=== PATIENT | male | born 1950 | race Two or more races ===

== ENCOUNTER 2019-09-04 18:03 | Emergency (ER) | payer MEDICARE, OTHER ==
[~2019-09-04] VITALS: Ht 172.7 cm; Wt 96.0 kg
--- NOTE | 2019-09-04 18:29 | NUR ---
Adryan lee in ED - 09/04/19 at 1835 by MAURISIO PT XIOMY NANCE.
--- NOTE | 2019-09-04 18:33 | NUR ---
PT NOT DC'S. PREVIOUS PATIENT IN 3 DISCHARGED.
--- NOTE | 2019-09-04 18:33 | NUR ---
THIS IS A 69 YO MALE COMING IN FOR NAUSEA, CRAMPING, DIZZINESS, BODY ACHES, AND A HEADACHE STARTING TWO HOURS AGO WITH A SUDDEN ONSET. PATIENT IS A&O X4, HAS NO MEDICAL HISTORY BESIDES DIABETES. PATIENT DENIES VOMITING OR DIARRHEA. PATIENT AMBULATED WITH STEADY GAIT TO RESTROOM, URINE SAMPLE OBTAINED. PATIENT PLACED ON CONTINUOUS SPO2 AT 95%, CYCLE BP Q1HR. DENIES FURTHER NEEDS AT THIS TIME.
[2019-09-04] MEDS ORDERED: ONDANSETRON 2MG/ML, 2ML ONE (18:47)
[2019-09-04 18:57] LABS: BASOPHILS # (AUTO) 0.02 x10^3/uL (0-0.1); BASOPHILS % (AUTO) 0 % (0-1); EOSINOPHILS # (AUTO) 0.11 x10^3/uL (0-0.4); EOSINOPHILS % (AUTO) 1 % (1-7); LYMPHOCYTES # (AUTO) 1.04 x10^3/uL (1-3.4); LYMPHOCYTES % (AUTO) 13 % (22-44); MD NO; MEAN CORPUSCULAR HEMOGLOBIN 30.8 pg (27.5-34.5); MEAN CORPUSCULAR HGB CONC 33.4 g/dL (33.2-36.2); MEAN CORPUSCULAR VOLUME 92.2 fL (81-97); MEAN PLATELET VOLUME 9.1 fL (7.4-10.4); MONOCYTES # (AUTO) 0.27 x10^3/uL (0.2-0.8); MONOCYTES % (AUTO) 3 % (2-9); NEUTROPHILS # (AUTO) 6.85 x10^3/uL (1.8-6.8); NEUTROPHILS % (AUTO) 83 % (42-75); PLATELET COUNT 171 x10^3/uL (130-400); RED BLOOD COUNT 4.65 x10^6/uL (4.38-5.82)
[2019-09-04] MEDS ORDERED: SODIUM CHLORIDE FLUSH 10ML SYR IVF ONE (19:00)
[2019-09-04] MEDS ORDERED: ONDANSETRON 2MG/ML, 2ML IVPush ONE (19:00)
[2019-09-04 19:01] LABS: MICROSCOPIC AUTO
[2019-09-04 19:09] LABS: ALANINE AMINOTRANSFERASE 21 U/L (12-78); ALBUMIN 3.6 g/dL (3.4-5.0); ANION GAP 8 mmol/L (5-15); CALCIUM 8.3 mg/dL (8.5-10.1); CHLORIDE 105 mmol/L (98-107); CREATININE 1.16 mg/dL (0.7-1.3)
[2019-09-04 19:10] LABS: CULTURE INDICATED? NO
[2019-09-04 19:14] LABS: ALKALINE PHOSPHATASE 100 U/L (45-117); TOTAL PROTEIN 7.3 g/dL (6.4-8.2); TROPONIN I 0.033 ng/mL (0.000-0.045)
--- NOTE | 2019-09-04 19:39 | NUR ---
PT RESTING QUIETLY W/ LIGHTS DIMMED. STATES CARRILLO "IS STILL THERE, IT JUST DOESN'T SEEM TO WANT TO GO AWAY". CARDIAC & VS MONITORING CONTINUING. SIDE RAILS UP X2, CALL LIGHT W/IN REACH. SPOUSE IN ROOM.
[2019-09-04] MEDS ORDERED: PRAV40TA2 PO (19:46)
[2019-09-04] MEDS ORDERED: MELO7.5T31 PO (19:46)
[2019-09-04] MEDS ORDERED: LISI-167 PO (19:46)
[2019-09-04] MEDS ORDERED: GABA300C10 PO (19:46)
[2019-09-04] MEDS ORDERED: LEVO137T3 PO (19:46)
[2019-09-04] MEDS ORDERED: INSULIN (19:47)
[2019-09-04] MEDS ORDERED: KETOROLAC 30 MG/1 ML ONE (19:52)
[2019-09-04] MEDS ORDERED: DULA1.5P SL (19:56)
[2019-09-04] MEDS ORDERED: KETOROLAC 30 MG/1 ML IVPush ONE (20:00)
--- NOTE | 2019-09-04 20:00 | NUR ---
TORADOL GIVEN PER EMAR. IV SITE PATENT.
[2019-09-04 21:37] VITALS: BP 159/78
== END 2019-09-04 21:48 | disposition home or self-care (01) ==
LOC: ED 21:42
DX: R10.84 Generalized abdominal pain (principal); R51 Headache; I10 Essential (primary) hypertension; E11.9 Type 2 diabetes mellitus without complications; E03.9 Hypothyroidism, unspecified; E78.00 Pure hypercholesterolemia, unspecified
CPT/HCPCS: 36415; 70450; 71045; 80053; 81001; 83690; 84484; 85025; 93005; 96374; 96375; 99284; J1885; J2405

== ENCOUNTER 2020-04-24 13:43 | Outpatient (CLI) | payer MEDICARE, OTHER ==
[~2020-04-24 13:43] MED LIST: DULA1.5P SL; GABA300C10 PO; INSULIN; LEVO137T3 PO; LISI-167 PO; MELO7.5T31 PO; PRAV40TA2 PO
== END 2020-04-24 23:59 | disposition home or self-care (01) ==
LOC: CFH 13:43
PROVIDERS: ATTEND Psychiatry & Neurology Neurology
DX: I67.82 Cerebral ischemia (principal); G31.9 Degenerative disease of nervous system, unspecified; J34.89 Other specified disorders of nose and nasal sinuses; F03.90 Unspecified dementia, unspecified severity, without behavioral disturbance, psychotic disturbance, mood disturbance, and anxiety
CPT/HCPCS: 70551